=== PATIENT | male | born 1985 | race Caucasian/White ===

== ENCOUNTER 2019-10-16 19:26 | Emergency (ER) | payer MEDICAID ==
[~2019-10-16] VITALS: Ht 172.7 cm; Wt 83.1 kg
[2019-10-16 19:30] VITALS: BP 126/71
--- NOTE | 2019-10-16 19:30 | NUR ---
33 Y/O MALE PT C/O SOMETHING STUCK IN HIS THROAT X 1 WEEK. PT STATES "FEEL SOMETHING IN THROAT WHEN I SWALLOW". AIRWAY PATENT, NO DROOLING, VOICE CLEAR. MUCOUS MEMBRANE PINK AND MOIST; THROAT IS SLIGHTLY RED. ORLIN SOB; BREATHING IS SYMMETRICAL AND UNLABORED. ERMD MADE AWARE OF STATUS. SIDE RAILSX1. MEDHX:DENIES RX:DENIES NKDA
--- NOTE | 2019-10-16 19:40 | NUR ---
PA AT BEDSIDE EVALUATING PATIENT.
[2019-10-16] MEDS ORDERED: DICYCLOMINE HCL LIQUID 20 MG, ALUMINUM HYD/MAG/SIMETHICONE 30 ML, LIDOCAINE VISCOUS 2% ... PO ONE ×3 (19:45)
[2019-10-16 22:15] VITALS: BP 120/67
--- NOTE | 2019-10-16 22:15 | NUR ---
NIKKO OKAY TO DISCHARGE PATIENT. Patient discharged with v/s stable. Written and verbal after care instructions given and explained. Patient alert, oriented and verbalized understanding of instructions. Ambulatory with steady gait. All questions addressed prior to discharge. ID band removed. Patient advised to follow up with PMD. Rx of IBUPROFEN given. Patient educated on indication of medication including possible reaction and side effects. Opportunity to ask questions provided and answered.
== END 2019-10-16 22:15 | disposition home or self-care (01) ==
LOC: MED 19:26
DX: R09.89 Other specified symptoms and signs involving the circulatory and respiratory systems (principal)
CPT/HCPCS: 70360; 99283

== ENCOUNTER 2020-04-28 21:57 | Emergency (ER) | payer MEDICAID, OTHER ==
[~2020-04-28] VITALS: Ht 170.2 cm; Wt 92.1 kg
[2020-04-28 22:02] VITALS: BP 124/79
[2020-04-28 22:58] VITALS: BP 124/79
[2020-04-28] MEDS ORDERED: LIDOCAINE VISCOUS 2% 20 ML UDC PO ONE (23:10)
== END 2020-04-28 23:55 | disposition home or self-care (01) ==
LOC: MED 21:57
DX: J02.9 Acute pharyngitis, unspecified (principal)
CPT/HCPCS: 99282

== ENCOUNTER 2020-10-12 18:06 | Emergency (ER) | payer OTHER ==
[~2020-10-12] VITALS: Ht 172.7 cm; Wt 95.3 kg
[2020-10-12 18:19] VITALS: BP 144/86
--- NOTE | 2020-10-12 18:20 | NUR ---
Patient in tent for covid precautions
--- NOTE | 2020-10-12 18:23 | NUR ---
34 y/o male from home c/o chills, headache, nasal congestion, cough, and loss of taste and smell x 2 days. + covid contact on 10/05. RR even and unlabored, does not appear in distress. Skin warm, dry, intact. Pt states he needs note to be out of work. VSS
--- NOTE | 2020-10-12 18:48 | NUR ---
Covid swab collected and sent to lab.
[2020-10-12 19:02] VITALS: BP 144/86
--- NOTE | 2020-10-12 19:02 | NUR ---
Patient discharged with v/s stable. Written and verbal after care instructions given and explained. Patient alert, oriented and verbalized understanding of instructions. Ambulatory with steady gait. All questions addressed prior to discharge. ID band removed. Patient advised to follow up with PMD. Rx of Promethazine 6.25 and Ibuprofen 400mg given. Patient educated on indication of medication including possible reaction and side effects. Opportunity to ask questions provided and answered.
--- NOTE | 2020-10-15 13:49 | NUR ---
Covid results received from lab. Results = POSITIVE. Hard copy requested from lab and placed in infection controls mailbox.
== END 2020-10-12 19:02 | disposition home or self-care (01) ==
LOC: MED 18:06
DX: U07.1 COVID-19 (principal); R51.9 Headache, unspecified; R43.8 Other disturbances of smell and taste
CPT/HCPCS: 99283; U0003

== ENCOUNTER 2022-05-29 20:55 | Emergency (ER) | payer OTHER ==
[~2022-05-29] VITALS: Ht 172.7 cm; Wt 99.8 kg
[2022-05-29 20:55] VITALS: BP 128/59
[2022-05-29] MEDS ORDERED: ACET-10509 PO (21:52)
[2022-05-29] MEDS ORDERED: IBUP-2213 PO (21:52)
[2022-05-29 22:17] VITALS: BP 127/62
== END 2022-05-29 22:17 | disposition home or self-care (01) ==
LOC: MED 20:55
DX: S93.401A Sprain of unspecified ligament of right ankle, initial encounter (principal); X58.XXXA Exposure to other specified factors, initial encounter; Y93.89 Activity, other specified; Y92.89 Other specified places as the place of occurrence of the external cause; Y99.8 Other external cause status
CPT/HCPCS: 73610; 99283; Q0092